=== PATIENT | female | born 1960 | race African-American/Black ===

== ENCOUNTER → 2016-05-19 | Outpatient (CLI) | payer MEDICAID ==
[~2016-05-19] MED LIST: REGADENOSON 0.4 MG/5 ML IV ONE
== END | disposition home or self-care (01) ==
LOC: NM 06:38
PROVIDERS: ATTEND Internal Medicine Cardiovascular Disease
DX: Z01.818 Encounter for other preprocedural examination (principal); I20.9 Angina pectoris, unspecified
CPT/HCPCS: 78452; 93017; A9500; C1893; J2785